=== PATIENT | male | born 1985 | race Caucasian/White ===

== ENCOUNTER 2017-05-20 14:14 | Observation (INO) ==
[2017-05-20] MEDS ORDERED: PHENYLEPHRINE 1 MG/10 ML SYRINGE IV ONE (15:00)
[2017-05-20 15:35] LABS: VBG HCO3 24.5 MEQ/L (24-28); VBG Oxygen Saturation 42.3 %; VBG PH 7.099; VBG PO2 17.4 MMHG (17-40)
[2017-05-20] MEDS ORDERED: ceFAZolin 2,000 MG in SODIUM CHLORIDE 0.9% 100 ML IV STA (16:00)
[2017-05-20] MEDS ORDERED: ceFAZolin 1,000 MG VIAL ONE (17:10)
[2017-05-20] MEDS ORDERED: BACITRACIN OINT 0.9 GM PACK TOP ONE (17:13)
[2017-05-20] MEDS ORDERED: PROPOFOL 200 MG/20 ML VIAL IV ONE (17:44)
[2017-05-20] MEDS ORDERED: SEVOFLURANE 1 UNIT/15 MINUTE INH ONE (17:44)
[2017-05-20] MEDS ORDERED: fentaNYL 100 MCG/2 ML VIAL ONE (17:44)
[2017-05-20] MEDS ORDERED: MIDAZOLAM 2 MG/2 ML VIAL ONE (17:44)
[2017-05-20] MEDS ORDERED: ONDANSETRON 4 MG/2 ML VIAL ONE (17:45)
[2017-05-20] MEDS ORDERED: ROCURONIUM 100 MG/10 ML VIAL IV ONE (17:45)
[2017-05-20] MEDS ORDERED: LABETALOL 100 MG/20 ML VIAL IV ONE (17:45)
[2017-05-20] MEDS ORDERED: SUCCINYLCHOLINE 200 MG/10 ML VIAL ONE (17:45)
[2017-05-20 17:46] LABS: Apearance,Urine CLEAR (Clear); Bilirubin,Urine Negative (Negative); Blood, Urine Negative (Negative); Glucose,Urine (UA) Negative (Negative); Ketones,Urine Negative (Negative); Mucus,Urine Occasional /LPF (Occasional); Nitrite,Urine Negative (Negative); Protein,Urine Negative; RBC,Urine 1 /HPF (0-4); Squamous Epithelial Cell,Urine Occasional /HPF (0-10); Urine Color Yellow (Yellow); Urine Specific Gravity 1.013 (1.001-1.035); WBC,Urine 3 /HPF (0-6)
[2017-05-20] MEDS ORDERED: LABETALOL 20 MG/4 ML SYRINGE IV STA (17:55)
[2017-05-20] MEDS ORDERED: LABETALOL 100 MG/20 ML VIAL IV STA ×2 (18:01→18:08)
[2017-05-20] MEDS ORDERED: ONDANSETRON 4 MG/2 ML VIAL IV PRN (18:15)
[2017-05-20] MEDS ORDERED: hydrALAZINE 20 MG/1 ML VIAL IV ONE (18:16)
[2017-05-20] MEDS: HYDROmorphone 2 MG/1 ML VIAL IV PRN ×4 (18:20→18:58)
[2017-05-20] MEDS: SODIUM CHLORIDE 0.9% 1,000 ML IV SCH (18:29)
[2017-05-20] MEDS ORDERED: DILTIAZEM 50 MG/10 ML VIAL IV ONE ×2 (18:39→18:42)
[2017-05-20] MEDS ORDERED: diphenhydrAMINE 50 MG/1 ML VIAL IV PRN (19:54)
[2017-05-20] MEDS ORDERED: DOCUSATE SODIUM 100 MG CAPSULE PO PRN (19:54)
[2017-05-20] MEDS: MORPHINE 2 MG/1 ML SYRINGE IV PRN (20:12)
[2017-05-20] MEDS: GABAPENTIN 100 MG CAPSULE PO SCH (20:14)
[2017-05-20] MEDS: SULFAMETHOX/TRIMETHOPRIM 800-160 MG TABLET PO SCH (20:14)
[2017-05-21] MEDS: NICOTINE 21 MG/24 HR PATCH TRANSDERM SCH ×2 (01:35→09:36)
[2017-05-21] MEDS: MORPHINE 2 MG/1 ML SYRINGE IV PRN ×2 (01:45→06:38)
[2017-05-21] MEDS: SODIUM CHLORIDE 0.9% 1,000 ML IV SCH ×2 (07:18→09:36)
[2017-05-21] MEDS ORDERED: BACITRACIN OINT 0.9 GM PACK TOP ONE (07:58)
[2017-05-21 08:18] VITALS: BP 161/87
[2017-05-21] MEDS: SULFAMETHOX/TRIMETHOPRIM 800-160 MG TABLET PO SCH (08:29)
[2017-05-21] MEDS: GABAPENTIN 100 MG CAPSULE PO SCH (08:29)
== END 2017-05-21 08:50 | disposition home or self-care (01) ==
LOC: N.EDINP 14:14 → N.ED 14:14 → N.EDINP 16:30 → N.5E 19:53
PROVIDERS: ADMIT Emergency Medicine; ATTEND Emergency Medicine